=== PATIENT | female | born 2000 | race Caucasian/White ===

== ENCOUNTER 2024-09-28 09:07 | Emergency (ER) | payer MEDICAID ==
[~2024-09-28] VITALS: Ht 160 cm; Wt 93.1 kg
[~2024-09-28 09:07] MED LIST: BUPR150T8 PO; IMIP10TA PO; LORA0.5T PO; MELA3TAB39 PO; METH20CP12 PO
[2024-09-28 09:29] VITALS: BP 141/89; PULSE 106; RESP 16; O2SAT 97
--- NOTE | 2024-09-28 09:57 | RADIOLOGY REPORT ---
CLINICAL INDICATION: WRIST PAIN TECHNIQUE: left DI WRIST, COMPLETE (3VW MIN) Comparison: None FINDINGS/IMPRESSION: : There is no evidence of acute fracture or dislocation. Soft tissues are unremarkable.
--- NOTE | 2024-09-28 10:17 | Physician Documentation ---
History of Present Illness ~ Chief Complaint: Wrist pain Stated Complaint: FALL Time Seen by MD: 09:36 Primary Medical Doctor: THOMAS DE PAZ Patient is seen today with complaints of pain of her left wrist after she fell off [employer] electric scooter just prior to arrival. Patient states she has pain with range of motion. She denies any chest pain or shortness of breath or abdominal pain or nausea, vomiting, diarrhea. Patient has no other concern or complaint at this time. Tetanus within 5 years: Yes Medication Reconciliation Allergies: Coded Allergies: No Known Allergies (Unverified , 06/07/15) Scheduled Bupropion Hcl SR* (Wellbutrin SR*), 1 TAB PO DAILY, (Reported) Imipramine Hcl* (Tofranil*), 75 MG PO HS, (Reported) Melatonin (Melatonin), 1 TABLET PO HS, (Reported) Methylphenidate Hcl (Methylphenidate Er), 36 MG PO DAILY, (Reported) Scheduled PRN Lorazepam* (Ativan*), 1 TABLET PO BID PRN for anxiety, (Reported) Past Medical History Past Medical History: No Pertinent History Past Surgical History: no surgical history Alcohol Use: None Drug Use: none Lives with: Family Review of Systems Constitutional: Denies: chills, fever, weakness Eyes: Denies: pain, blurred vision ENT: Denies: ear pain, nose pain, throat pain, mouth pain Respiratory: Denies: cough, shortness of breath Cardiovascular: Denies: chest pain, palpitations Gastrointestinal: Denies: abdominal pain, nausea, vomiting Genitourinary: Denies: burning, dysuria Female Genitalia: Denies: vaginal discharge, pelvic pain Neurological: Denies: headache, dizziness Musculoskeletal: Denies: pain, swelling Integumentary: Denies: rash, lesions Allergic/Immunologic: Denies: hives, itching Hematologic/Lymphatic: Denies: no symptoms reported Psychiatric: Denies: depression, anxiety Physical Exam Vital Signs: Temperature: 98.0, Source: Temporal, Heart Rate: 106, Respiratory Rate: 16, BP: 141/89, Pulse Oximetry: 97, Weight: 93.100 Oxygen Flow Rate: 0 Physical Exam General: Awake and Alert, no acute distress. HEENT: Conjunctiva pink, Sclera clear, Mucus Membranes moist. Neck: Supple without masses and tenderness. Resp: Unlabored. Lungs clear to auscultation bilaterally. Heart: Regular Rate and rhythm, normal S1 and S2 without murmur, rub or gallop. Musculoskeletal: Patient on exam does have tenderness to palpation of the ulnar aspect of the distal wrist. She has pain elicited with supination and pronation and pain with mild range of motion of the left wrist. Patient is neurovascularly intact distally. Motor function is intact distally. Strength is intact. Extremities: No cyanosis,clubbing or edema. Skin: Warm and Dry. Progress Results/Orders Results/Orders Vital Signs 09/28/24 09:29 Temp 98.0 Pulse 106 Resp 16 B/P (MAP) 141/89 Pulse Ox 97 O2 Flow Rate 0 EKG/XRAY/CT/US/VASC/MRI Bone/Soft Tissue X-Ray (Ext.) : Additional Comment X-ray of left wrist interpreted by myself today shows no sign of acute fracture, bones in anatomic alignment, no osteolytic or blastic lesions. DIAGNOSTIC RADIOLOGY Patient: MARLO VILLALTA Medical Record: [id number] [facility] : 2000, Age: 23 Sex: Female Location: ER Patient Status: [facility] ER Service Date/Time: 09/28/24931 Ordering Physician: CARLIN CASTREJON MD Exam: WRIST, COMPLETE (3VW MIN) CLINICAL INDICATION: WRIST PAIN TECHNIQUE: left DI WRIST, COMPLETE (3VW MIN) Comparison: None FINDINGS/IMPRESSION: : There is no evidence of acute fracture or dislocation. Soft tissues are unremarkable. Electronically Signed by:SAMUEL LOREDO MD Date & Time: 09/28/24953 Dictated by: SAMUEL LOREDO MD Dictation date and time: 09/28/24934 Primary Care Provider: NO PRIMARY CARE PROVIDER cc: CARLIN CASTREJON MD ~ Medical Decision Making Findings Patient is seen today with complaints of pain of her left wrist after she fell off [employer] scooter just prior to arrival. Patient states she has pain with range of motion. She denies any chest pain or shortness of breath or abdominal pain or nausea, vomiting, diarrhea. Patient has no other concern or complaint at this time. X-ray of left wrist shows no sign of acute fracture. Patient will follow up with primary care in 7-10 days or return to ED for repeat x-rays in that timeframe if no better or if pain persists or worsens. Patient will return to ED with any worsening, concerning or changing symptoms. Patient will advance activity level as tolerated. Rest ice compress and elevate 20 minutes on 20 minutes off for the next 2-4 days. Patient may take Tylenol and ibuprofen as needed for symptomatic pain relief. Departure Disposition: 01 HOME / SELF CARE / HOMELESS Impression: Primary Impression: Left wrist sprain Qualified Codes: S63.522A - Sprain of radiocarpal joint of left wrist, initial encounter Condition: Stable Discharge Instructions: Wrist Pain, Adult Additional Instructions: X-ray of left wrist shows no sign of acute fracture. Patient will follow up with primary care in 7-10 days or return to ED for repeat x-rays in that timeframe if no better or if pain persists or worsens. Patient will return to ED with any worsening, concerning or changing symptoms. Patient will advance activity level as tolerated. Rest ice compress and elevate 20 minutes on 20 minutes off for the next 2-4 days. Patient may take Tylenol and ibuprofen as needed for symptomatic pain relief. Referrals: NO PRIMARY CARE PROVIDER (PCP) Signature Scribe Signature: No scribe Attestation: No scribe JULIANO PEÑALOZA PAC September 28, 2024 10:17
[2024-09-28 10:25] VITALS: TEMP 98
[2024-09-28] MEDS: bacitracin 15gm ointment TP ONE (10:30)
== END 2024-09-28 10:33 | disposition home or self-care (01) ==
LOC: ER 09:07
DX: S63.592A Other specified sprain of left wrist, initial encounter (principal); Z79.899 Other long term (current) drug therapy; W18.39XA Other fall on same level, initial encounter; Y93.89 Activity, other specified; Y92.89 Other specified places as the place of occurrence of the external cause; Y99.8 Other external cause status
CPT/HCPCS: 73110; 99283